=== PATIENT | female | born 1995 | race Hispanic/Latino ===

== ENCOUNTER 2024-09-30 18:00 | Inpatient (IN) | payer MEDICAID, OTHER ==
[~2024-09-30 18:00] MED LIST: Bupivacaine 0.25% HCL 30 ML VIAL ONE
[2024-09-30 21:49] VITALS: BMI 25.4
[2024-09-30] MEDS ORDERED: Tranexamic Acid 1,000 MG/10 ML VIAL IVP PRN (22:51)
[2024-09-30] MEDS ORDERED: Ondansetron PF 4 MG/2 ML Vial IVP PRN (22:51)
[2024-09-30] MEDS ORDERED: fentaNYL 50 mcg/mL 1 mL Vial SLOW IVP PRN (22:51)
[2024-09-30] MEDS ORDERED: Diphenoxylate HCl/Atropine Tablet PO PRN (22:51)
[2024-09-30] MEDS ORDERED: Acetaminophen 500 MG TAB PO PRN (22:51)
[2024-09-30] MEDS ORDERED: Methylergonovine 0.2 MG/ML VIAL IM PRN (22:51)
[2024-09-30] MEDS ORDERED: Lidocaine 1% (PF) 30 ML VIAL SC PRN (22:51)
[2024-09-30] MEDS ORDERED: HYDROcodone/Acetaminophen 5/325 mg Tablet PO PRN (22:51)
[2024-09-30] MEDS ORDERED: Carboprost 250 MCG/ML AMP IM PRN (22:51)
[2024-09-30] MEDS ORDERED: Misoprostol 200 MCG TAB PR PRN (22:51)
[2024-09-30] MEDS ORDERED: Promethazine HCl 25 MG/ML VIAL IM PRN (22:51)
[2024-09-30] MEDS ORDERED: hydrALAZINE 20 MG/ML VIAL SLOW IVP PRN (22:51)
[2024-09-30] MEDS ORDERED: Lactated Ringer's 1,000 ML IV SCH (23:00)
[2024-09-30] MEDS ORDERED: Misoprostol 100 MCG TAB PO SCH (23:00)
[2024-09-30] MEDS ORDERED: Oxytocin 30 units/NS 500 ML 500 ML IV SCH ×2 (23:00)
[2024-09-30 23:14] LABS: Hematocrit 34.4 % (34.9-44.5); Hemoglobin 11.5 g/dL (12.0-15.5); Mean Corpuscular HGB CONC 33.4 g/dL (32.0-36.0); Mean Corpuscular Hemoglobin 27.2 pg (27.0-33.0); Mean Corpuscular Volume 81.3 fL (81.6-98.3); Mean Platelet Volume 12.1 fL (7.4-10.4); Platelet Count 237 10x3/uL (150-450); RBC Distribution Width 15.4 % (11.5-14.5); Red Blood Cell (RBC) Count 4.23 10x6/uL (3.90-5.03); White Blood Cell (WBC) Count 8.2 10x3/uL (3.5-10.5)
[2024-09-30 23:35] LABS: Syphilis Antibody Nonreactive (Nonreactive); Syphilis Antibody Index 0.06 S/CO (<1.00 Non-Reactive)
[2024-09-30 23:37] LABS: HBsAg Index 0.17 S/CO (0-0.99); Hep B Surf Ag - L&D Non-Reactive S/CO (NonReactive)
[2024-10-01] MEDS: fentaNYL 2 mcg/Ropivacaine 0.2% Epidural 100 ML CADD EPIDURAL SCH (12:00)
[2024-10-01] MEDS ORDERED: Promethazine HCl 25 MG/ML VIAL IM PRN ×2 (12:04→22:57)
[2024-10-01] MEDS ORDERED: Naloxone HCl 0.4 mg/ml Vial IVP PRN ×2 (12:04)
[2024-10-01] MEDS ORDERED: diphenhydrAMINE 50 MG/ML VIAL IVP PRN (12:04)
[2024-10-01] MEDS ORDERED: Ondansetron PF 4 MG/2 ML Vial IVP PRN ×2 (12:04→22:57)
[2024-10-01] MEDS ORDERED: ePHEDrine Sulfate 50 MG/10 ML VIAL SLOW IVP PRN (12:04)
[2024-10-01] MEDS ORDERED: Lactated Ringer's 500 ML IV PRN (12:04)
[2024-10-01] MEDS ORDERED: Moisturizing Cream (Eucerin) 113 GM JAR TOP PRN (12:04)
[2024-10-01] MEDS ORDERED: Communication Order-Pharmacy FS SCH (12:15)
[2024-10-01] MEDS: Acetaminophen 325 MG TAB PO PRN (17:46)
[2024-10-01] MEDS: Oxytocin 30 units/NS 500 ML 500 ML IV SCH (20:30)
[2024-10-01] MEDS: Ibuprofen 800 MG TAB PO PRN (21:57)
[2024-10-01] MEDS ORDERED: diphenhydrAMINE 25 MG CAP PO PRN (22:57)
[2024-10-01] MEDS ORDERED: Milk Of Magnesia 30 ML UDCUP PO PRN (22:57)
[2024-10-01] MEDS ORDERED: Lanolin Ointment 7 GM TUBE TOP PRN (22:57)
[2024-10-01] MEDS ORDERED: Bisacodyl 10 MG SUPP PR PRN (22:57)
[2024-10-01] MEDS ORDERED: Boostrix 0.5 ML (Tdap) VIAL (>/=7 yrs of age) IM ONE (22:57)
[2024-10-01] MEDS ORDERED: hydrALAZINE 20 MG/ML VIAL SLOW IVP PRN (22:57)
[2024-10-02] MEDS: Dexmedetomidine 200 MCG/2 ML VIAL ONE (00:41)
[2024-10-02] MEDS: Erythromycin Base 0.5% Oint 1 GM TUBE ONE (00:41)
[2024-10-02] MEDS: Phytonadione Neonatal 1 MG/0.5 ML AMP ONE (00:41)
[2024-10-02] MEDS: fentaNYL/Ropivacaine Epidural 100 ML ONE (00:41)
[2024-10-02] MEDS: HYDROcodone/Acetaminophen 5/325 mg Tablet PO PRN (00:54)
[2024-10-02] MEDS: Docusate 100 MG CAP PO SCH ×2 (00:55→07:56)
[2024-10-02] MEDS: Ibuprofen 800 MG TAB PO SCH (06:27)
[2024-10-02] MEDS: Ferrous Sulfate 325 MG TAB PO SCH (07:17)
[2024-10-02] MEDS: Prenatal Vitamin 1 TAB PO SCH (07:55)
[2024-10-02] MEDS: Benzocaine-Menthol 82.5 ML CAN TOP PRN (17:54)
[2024-10-03 07:35] VITALS: BP 113/74; TEMP 98.4
== END 2024-10-03 17:05 | disposition home or self-care (01) | DRG 807 ==
LOC: CSHLD 21:24 → CSHPP 10-01 22:40
PROVIDERS: ADMIT Family Medicine; ATTEND Family Medicine
PROC: 10H07YZ Insertion of Other Device into Products of Conception, Via Natural or Artificial Opening (ICD-10-PCS; principal; 2024-10-01)
PROC: 10E0XZZ Delivery of Products of Conception, External Approach (ICD-10-PCS; 2024-10-01)
DX: O80 Encounter for full-term uncomplicated delivery (principal); Z37.0 Single live birth; Z3A.39 39 weeks gestation of pregnancy
CPT/HCPCS: 36415; 51702; 85027; 86780; 86850; 86900; 86901; 87340; J0665; J2590